=== PATIENT | female | born 1970 | race Caucasian/White ===

== ENCOUNTER 2019-01-11 11:27 | Emergency (ER) | payer OTHER, BC ==
--- NOTE | 2019-01-11 12:02 | EDM.PDOC ---
ED HPI GENERAL MEDICAL PROBLEM - General Chief Complaint: Neuro Symptoms/Deficits Stated Complaint: LEFT FACE NUMB SHAKEY Time Seen by Provider: 01/11/19 11:45 Source of Information: Reports: Patient - History of Present Illness INITIAL COMMENTS - FREE TEXT/NARRATIVE: pt comes ambulatory with concerns for sudden onset of numbness in the left side of her face and left hand. This started about 40 minutes ago. Patient became anxious and shaky about this and presented to the ER with this. Patient denies any associated pain, headaches,neck stiffness, facial rash, any respiratory or cardiovascular symptoms. Denies any tick bite or recent travel, etc., patient denies any other symptoms or concerns. - Related Data Allergies Allergy/AdvReac Type Severity Reaction Status Date / Time azithromycin Allergy Diarrhea Verified 01/11/19 11:50 Penicillins Allergy Nausea and Verified 01/11/19 11:50 Vomiting Sulfa (Sulfonamide Allergy Diarrhea Verified 01/11/19 11:50 Antibiotics) Home Meds: Home Meds FLUoxetine [PROzac] 40 mg PO DAILY 06/06/14 [History] Past Medical History Gastrointestinal History: Reports: Other (See Below) (chron disease) ED ROS GENERAL - Review of Systems Review Of Systems: See Below Constitutional: Reports: No Symptoms Respiratory: Reports: No Symptoms. Denies: Shortness of Breath Cardiovascular: Reports: No Symptoms. Denies: Chest Pain GI/Abdominal: Reports: No Symptoms Musculoskeletal: Reports: No Symptoms Neurological: Reports: Numbness, Paresthesia. Denies: Dizziness, Headache, Seizure, Tremors, Trouble Speaking, Difficulty Walking Psychiatric: Reports: No Symptoms ED EXAM, GENERAL - Physical Exam Exam: See Below Exam Limited By: No Limitations General Appearance: Alert, No Apparent Distress Throat/Mouth: Normal Inspection, Other (no facial rash ) Head: Atraumatic, Normocephalic Neck: Normal Inspection, Supple, Non-Tender, Full Range of Motion Respiratory/Chest: No Respiratory Distress, Lungs Clear, Normal Breath Sounds, No Accessory Muscle Use, Chest Non-Tender Cardiovascular: Normal Peripheral Pulses, Regular Rate, Rhythm, No Edema, No Gallop, No JVD, No Murmur, No Rub GI/Abdominal: Normal Bowel Sounds, Soft, Non-Tender, No Organomegaly, No Distention, No Abnormal Bruit, No Mass Neurological: Alert, Oriented, CN II-XII Intact, Normal Gait, Normal Reflexes, No Motor/Sensory Deficits Course - Vital Signs Text/Narrative:: unremarkable labs/ EKG/CT were explained to pt, pt continue with numbness sensation, pt is stable for discharge and out patient mng. BP came down to 150 systolic after 0.1 mg Catapres , pt to follow with PCP in 2 days for re-check on the above issues. Last Recorded V/S: Last Vital Signs Temp 36.9 C 01/11/19 11:30 Pulse 73 01/11/19 11:30 Resp 13 01/11/19 12:30 BP 146/73 H 01/11/19 12:30 Pulse Ox 100 01/11/19 12:30 - Orders/Labs/Meds Orders: Active Orders 24 hr Category Date Time Status EKG Documentation Completion [RC] ASDIRECTED Care 01/11/19 12:06 Ordered Head wo Cont [CT] Stat Exams 01/11/19 12:05 Ordered EKG 12 Lead [EK] Routine Ther 01/11/19 12:05 Ordered Labs: Laboratory Tests 01/11/19 01/11/19 01/11/19 Range/Units 12:27 12:27 12:27 WBC 5.7 (4.5-12.0) X10-3/uL RBC 4.25 (3.23-5.20) x10(6)uL Hgb 13.6 (11.5-15.5) g/dL Hct 40.3 (30.0-51.3) % MCV 94.7 (80-96) fL MCH 32.0 (27.7-33.6) pg MCHC 33.8 (32.2-35.4) g/dL RDW 12.2 (11.5-15.5) % Plt Count 424 H (125-369) X10(3)uL Sodium 142 (135-145) mmol/L Potassium 4.2 (3.5-5.3) mmol/L Chloride 101 (100-110) mmol/L Carbon Dioxide 32 (21-32) mmol/L BUN 12 (7-18) mg/dL Creatinine 0.8 (0.55-1.02) mg/dL Est Cr Clr Drug Dosing 73.46 mL/min Estimated GFR (MDRD) > 60 (>60) BUN/Creatinine Ratio 15.0 (9-20) Glucose 104 (80-116) mg/dL Calcium 9.3 (8.6-10.2) mg/dL Total Bilirubin 0.5 (0.1-1.3) mg/dL AST 23 D (5-25) IU/L ALT 24 D (12-36) U/L Alkaline Phosphatase 113 H (56-112) IU/L Troponin I < 0.017 L (<0.017-0.056) ng/mL Total Protein 8.0 (6.0-8.0) g/dL Albumin 4.2 (3.5-5.2) g/dL Globulin 3.8 g/dL Albumin/Globulin Ratio 1.1 Meds: Medications Discontinued Medications Generic Name Dose Route Start Last Admin Trade Name Freq PRN Reason Stop Dose Admin Clonidine HCl 0.1 mg 01/11/19 12:05 01/11/19 12:20 Catapres PO 01/11/19 12:06 0.1 mg ONETIME ONE Administration Departure - Departure Time of Disposition: 13:08 Disposition: Home, Self-Care 01 Clinical Impression: Facial numbness - Discharge Information Referrals: Justin Paz MD [Primary Care Provider] - Forms: ED Department Discharge - My Orders Last 24 Hours: My Active Orders 01/11/19 12:05 Head wo Cont [CT] Stat EKG 12 Lead [EK] Routine 01/11/19 12:06 EKG Documentation Completion [RC] ASDIRECTED - Assessment/Plan Last 24 Hours: My Active Orders 01/11/19 12:05 Head wo Cont [CT] Stat EKG 12 Lead [EK] Routine 01/11/19 12:06 EKG Documentation Completion [RC] ASDIRECTED
[2019-01-11] MEDS ORDERED: cloNIDine 0.1 MG Tab PO ONE (12:05)
--- NOTE | 2019-01-11 13:39 | CT ---
INDICATION: Left arm numbness. CT HEAD WITHOUT CONTRAST: Spiral examination of the brain was obtained axially with sagittal and coronal reconstructions, 01/11/19, and compared with MRI from 09/19/11. Total exam DLP = 1,270.76 mGy-cm. The paranasal sinuses and mastoid air cells are well-aerated. No cranial abnormality was suggested. No shift of midline structures, ventricular abnormalities, or abnormal areas of density were identified. No bleeding site or hematoma was seen. Ojeda/white matter interface appears normal. IMPRESSION: 1. No acute intracranial abnormalities - if symptoms persist, would suggest repeat MRI for further evaluation or possibly CT with IV contrast, as felt to be clinically necessary. Report was called to Dr. Wells at 1230 hours on 01/11/19. [facility]
[2019-01-11 20:21] VITALS: BP 140/76
== END 2019-01-11 13:30 | disposition home or self-care (01) ==
LOC: FB.ED 11:27
DX: R20.0 Anesthesia of skin (principal); Z88.1 Allergy status to other antibiotic agents; Z88.0 Allergy status to penicillin; Z88.2 Allergy status to sulfonamides
CPT/HCPCS: 36415; 70450; 80053; 84484; 85027; 93005; 99284; A9270